=== PATIENT | female | born 1935 | race Caucasian/White ===

== ENCOUNTER 2016-08-06 08:25 | Inpatient (IN) ==
[2016-08-06] MEDS ORDERED: METHOCARBAMOL 1,000 MG/10 ML VIAL IV STA (08:57)
[2016-08-06] MEDS ORDERED: KETOROLAC 30 MG/1 ML VIAL IV STA (08:57)
[2016-08-06] MEDS ORDERED: methylPREDNISolone SOD SUC 125 MG/2 ML VIAL IV STA (08:57)
--- NOTE | 2016-08-06 09:04 | Emergency Department Note ---
Arrival - Arrival Chief Complaint: Abdominal / Flank Pain Stated Complaint: Kidney infection-pain ED Nursing Triage Note: PT C/O LEFT LOWER BACK PAIN, LEFT FLANK PAIN ALL WEEK, WORSE LAST NIGHT. DENIES URINARY S/S. PT IS BEING TREATED FOR KIDNEY INFECTION BY DR NASSAR- PT HAD CT SCAN OF ABD ON MONDAY HERE. Mode of Arrival: Ambulatory Limitations: No Limitations Source: Patient Time Seen by Provider: 08/06/16 08:57 - History of Present Illness HPI Narrative: This 80-year-old white female presents with complaints of left sided mid back/ flank pain associated with nausea for the last week that has progressed to the point that she was up all night simply walking to get comfortable. She was seen by Dr. Funes twice this week and found to have several different issues. 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 The patient did demonstrate early in the week evidence of cystitis for which she was begun on antibiotics but had persistence of discomfort precipitating the CT scan. Also performed later in the week or serologic studies which revealed both hyponatremia and hypokalemia which were addressed. Currently the patient has no anterior abdominal pain and states specifically an area of discomfort in the left paraspinal thoracic area which she states at times seems to radiate down the left lower extremity. Currently although uncomfortable she is in no acute distress. Onset (ago): day(s) (Patient presents 1 week post onset of symptoms) Allergies/Adverse Reactions: Allergies Allergy/AdvReac Type Severity Reaction Status Date / Time sulfamethoxazole Allergy Unknown/Unable Verified 08/06/16 08:42 [From Bactrim] to obtain trimethoprim [From Bactrim] Allergy Unknown/Unable Verified 08/06/16 08:42 to obtain Home Medications: Home Medications Medication Instructions Recorded Confirmed Type Aspirin [Ecotrin] 81 mg PO DAILY #30 tablet. 05/26/14 Rx Levothyroxine Tab [Synthroid Tab] 75 mcg PO DAILY@0700 05/26/14 05/26/14 History Metoprolol Succinate Xl [Toprol Xl] 25 mg PO DAILY #30 tablet 05/26/14 Rx traMADol TAB [Ultram] 50 mg PO BID PRN 05/26/14 05/26/14 History Review of System - Review of System 12 point system: reviewed and no additional remarkable complaints except as stated - Review of System Constitutional: Present: as per HPI Gastrointestinal: Present: as per HPI Genitourinary female: Present: as per HPI Musculoskeletal: Present: as per HPI Neurological: Present: as per HPI Medical,Surgical,& Family Hx - Medical History Endocrine: History of: Thyroid Disorder Respiratory: History of: Bronchitis Gastrointestinal: History of: GERD Reproductive: History of: Ectopic - Surgical History Abdominal Surgeries: Surgical HX of: Appendectomy - Social History Smoking Status: Never smoker Frequency of Alcohol Use: None Type of Drug Use: None Exam Physical Examination: GENERAL: Well developed, well nourished elderly white female in no acute distress. HEENT: Normocephalic. No trauma. Moist mucous membranes. EOMI. PERRLA. ENT NML NECK: Supple. No adenopathy. CARDIAC: Regular. No murmurs. Heart rate 89 CHEST: Clear to auscultation. No respiratory distress. O2 sat 97% ABDOMEN: Soft. Nontender. Active bowel sounds. Tender tender left CVA EXTREMITIES: No trauma. Normal ROM. No pedal edema. Negative leg raising SKIN: No diaphoresis. No rash. NEURO: Alert. Oriented 3. Motor, sensory, vibratory intact. No focal deficits. Vital Signs: Vital Signs Temperature 99.1 F 08/06/16 08:39 Pulse Rate 82 08/06/16 10:30 Respiratory Rate 18 08/06/16 10:30 Blood Pressure 171/84 08/06/16 10:30 O2 Sat by Pulse Oximetry 98 08/06/16 10:30 Course - Reevaluation(s) Reevaluation #1: Discussed with patient need for hospitalization given her laboratory findings per - Consultations Consultation #1: Discussed with hospitalist service who will evaluate for further evaluation and treatment. Results - Labs CBC & BMP: 08/06/16 09:41 08/06/16 09:41 Labs: I have reviewed the laboratory and noted the grossly normal lab except for lipase of 542. - Diagnostic Findings Procedure: Abdominal x-ray: image reviewed by me, report reviewed by me (No evidence of progression of small bowel obstruction although fecal stasis no), X- ray: image reviewed by me, report reviewed by me (Thoracic spine film reveals evidence of significant DJD. No compression fractures noted) Disposition Clinical Impression: Pancreatitis, Constipation, Thoracic spine DJD Case discussed with: patient, patient's family Disposition: Still a Patient Condition: Stable Time of Disposition: 10:47
--- NOTE | 2016-08-06 09:27 | XRay Report ---
Exam: XR thoracic spine 2V ap/lat Date: 08/06/2016 8:57 AM Comparison: Lateral chest x-ray 05/26/2014 Indication: Thoracic pain Technique:[AP and lateral thoracic spine] Findings: Minimal dextroscoliosis of the thoracic spine. Chronic appearing minimal volume loss at T6 and T8 with degenerative changes. No definite acute fracture identified. Impression: Osteopenia with minimal chronic volume loss at T6 and T8 and superimposed degenerative changes. No definite acute fracture identified. Minimal dextroscoliosis. PROCEDURE INTERPRETED AT [facility] DEPARTMENT OF RADIOLOGY Final Report Signed by: Dr. Clarita Dominguez
--- NOTE | 2016-08-06 09:27 | XRay Report ---
Exam: XR abdomen 2V Date: 08/06/2016 8:57 AM Comparison: None Indication: 6 generalized abdominal pain Technique:[Supine and erect abdomen] Findings: Nonobstructed bowel gas pattern with increased fecal material in colon. No free air is identified. Osteopenia with degenerative changes. Impression: Nonobstructed bowel gas pattern. Increased fecal material consistent with constipation. Osteopenia with degenerative changes. PROCEDURE INTERPRETED AT [facility] DEPARTMENT OF RADIOLOGY Final Report Signed by: Dr. Clarita Dominguez
[2016-08-06 09:49] LABS: Basophils # 0.1 10*3/uL (0.0-0.2); Basophils % 0.7 % (0.0-0.8); Eosinophils # 0.1 10*3/uL (0.0-0.87); Eosinophils % 1.2 % (0.00-10.9); Hematocrit 40.6 VOL% (35.7-47.0); Hemoglobin 14.3 GM/DL (12.0-16.0); Immature Granulocytes % 0.3 %; Immature Granulocytes Absolute 0.02 #; Lymphocytes # 0.9 10*3/uL (1.4-4.0); Lymphocytes % 12.8 % (21.3-54.2); Mean Corpuscular HGB Conc 35.2 GM/DL (32-36); Mean Corpuscular Hemoglobin 31 PG (27-34); Mean Corpuscular Volume 87.3 FL (87-102); Mean Platelet Volume 10.2 FL (9.6-12.0); Monocytes # 0.7 10*3/uL (0.11-0.8); Monocytes % 10.8 % (1.7-12.7); Neutrophils # 5.1 10*3/uL (1.4-7.4); Neutrophils % 74.2 % (38.7-73.9); Platelet Count 231 T/CUMM (130-400); Red Blood Count 4.65 MC/CUMM (3.8-5.5); Red Cell Distribution Width 12.7 % (9.3-17.3); White Blood Count 6.9 T/CUMM (4-12)
[2016-08-06] MEDS ORDERED: KETOROLAC 30 MG/1 ML VIAL ONE (10:00)
[2016-08-06] MEDS ORDERED: methylPREDNISolone SOD SUC 125 MG/2 ML VIAL ONE (10:00)
[2016-08-06] MEDS ORDERED: METHOCARBAMOL 1,000 MG/10 ML VIAL ONE (10:00)
[2016-08-06 10:20] LABS: Albumin 3.8 G/DL (3.4-5.0); Bilirubin,Total 0.7 MG/DL (0.2-1.0); Calcium 8.9 MG/DL (8.5-10.1); Osmolality,Calculated 264.5 MOS/KG (273-304); Potassium 3.6 MMOL/L (3.5-5.1)
[2016-08-06 10:21] LABS: Apearance,Urine CLEAR (Clear); Bilirubin,Urine Negative (Negative); Blood, Urine Negative (Negative); Calcium Oxalate Crystals,Urine Occasional /HPF (Few); Glucose,Urine (UA) Negative (Negative); Ketones,Urine 5 mg/dL (Negative); Mucus,Urine Occasional /LPF (Occasional); Nitrite,Urine Negative (Negative); Protein,Urine 30 MG/DL; RBC,Urine 2 /HPF (0-4); Squamous Epithelial Cell,Urine Occasional /HPF (0-10); Urine Color Yellow (Yellow); Urine Specific Gravity 1.012 (1.001-1.035); Urine Urobilinogen < 2.0 EU/DL (0.2-1.0); WBC,Urine <1 /HPF (0-6)
[2016-08-06 10:22] LABS: Lactic Acid 0.8 MMOL/L (0.4-2.0)
[2016-08-06] MEDS ORDERED: ENOXAPARIN 40 MG/0.4 ML SYRINGE SUBCUT SCH (11:00)
[2016-08-06 11:20] LABS: Magnesium 1.9 MG/DL (1.8-2.4); Thyroid Stimulating Hormone 1.3 uIU/ml (0.358-3.74)
--- NOTE | 2016-08-06 11:26 | Hospitalist History & Physical ---
Assessment and Plan (1) Hyponatremia Status: Acute Assessment and plan: Sodium noted at 132, we will gently rehydrate and recheck in a.m. Current Visit: Yes (2) Elevated lipase Status: Acute Assessment and plan: Lipase noted 542 at the time of admission. We will start empiric antibiotic coverage, gently rehydrate, pain management, PPIs, and promote bowel rest. Current Visit: Yes (3) Constipation, unspecified Status: Acute Assessment and plan: We will start a bowel regimen plan. Reassess in a.m. Current Visit: Yes History of Present Illness Chief complaint: Abdominal pain History of present illness: This is a very pleasant 72-year-old female that presented to the ED at [facility] this morning for evaluation of abdominal pain. Patient has a medical history significant for: hypertension, depression, bronchitis, hypothyroidism, GERD, and arthritis. Patient has a surgical history significant for: appendectomy and bladder sling placement. The patient reports the onset of the above symptoms 1 week prior to presentation. She reports that she is normally followed by Dr. Funes and had been seen twice this week for the above complaint. During the clinical encounters with Dr. Funes this week the patient was told that she had several possible conditions that could attribute to the abdominal pain. It was suggested that the patient had cystitis and she was started on antibiotics; however the abdominal pain continued. The patient received a CT scan and outpatient setting which reported the possibility of early left-sided small bowel obstruction and severe degenerative disc changes of the axial skeleton. In addition, the patient was also noted to be hyponatremic and hypokalemic in the outpatient setting; in which she was also treated. At the time of ED presentation, the patient reported left lower abdominal and back discomfort. She reported that the pain originate in those areas and radiated down the left extremity. Labs were obtained: Hematology panel reported WBCs at 6.9, hemoglobin 14.3, hematocrit 40.6, and platelet count at 231. Chemistry panel was obtained which reported a sodium at 132, potassium 3.6 , chloride 98, carbon dioxide 26, anion gap 11.6, BUN 15, creatinine 0.70, glucose 98, calculated osmolality 264.5, lactic acid 0.8, calcium 8.9, AST 18, ALT 20, alkaline phosphatase 67, total protein 7.0, and lipase at 542. Urinalysis was essentially negative. X-ray of the thoracic spine reported: Osteopenia with minimal chronic volume loss at T6 and T8 and superimposed degenerative changes, no definite acute fracture identified, and minimal dextroscoliosis. Abdominal x-ray obtained which reported nonobstructive bowel gas pattern, increased fecal material consistent with constipation, osteopenia with degenerative changes. After brief discussion with Dr. Alvarez and Dr. Max, the patient will be admitted to the hospitalist services for continuation of care. Home Medications Medication Instructions Recorded Confirmed Type Aspirin [Ecotrin] 81 mg PO DAILY #30 tablet. 05/26/14 08/06/16 Rx Metoprolol Succinate Xl [Toprol Xl] 25 mg PO DAILY #30 tablet 05/26/14 08/06/16 Rx traMADol TAB [Ultram] 50 mg PO BID PRN 05/26/14 08/06/16 History Calcium (Carb)/Vit D 600-400 1 tablet PO DAILY 08/06/16 08/06/16 History [Caltrate 600 + D] Ciprofloxacin HCl [Ciprofloxacin 500 mg PO BID W/MEALS 08/06/16 08/06/16 History Tab] Esomeprazole Magnesium 20 mg PO DAILY 08/06/16 08/06/16 History [Esomeprazole] Levothyroxine Tab [Synthroid Tab] 50 mcg PO DAILY@0700 08/06/16 08/06/16 History Multivitamin [Multivitamins] 1 each PO QPM 08/06/16 08/06/16 History Potassium Chloride Cap/Tab [K Dur] 20 meq PO DAILY 08/06/16 08/06/16 History Sertraline HCl [Sertraline HCl] 50 mg PO DAILY 08/06/16 08/06/16 History Allergies Allergy/AdvReac Type Severity Reaction Status Date / Time sulfamethoxazole Allergy Unknown/Unable Verified 08/06/16 08:42 [From Bactrim] to obtain trimethoprim [From Bactrim] Allergy Unknown/Unable Verified 08/06/16 08:42 to obtain Medical,Surgical,& Family Hx - Medical History Endocrine: History of: Thyroid Disorder Respiratory: History of: Bronchitis Gastrointestinal: History of: GERD Reproductive: History of: Ectopic - Surgical History Abdominal Surgeries: Surgical HX of: Appendectomy - Social History Smoking Status: Never smoker Frequency of Alcohol Use: None Type of Drug Use: None 12 point system: reviewed and no additional remarkable complaints except as stated Exam - Constitutional Vitals: Period Temp Pulse Resp BP Sys/Santamaria Pulse Ox Last 24 Hr 99.1 F-99.1 F 82-89 18-18 149-208/84-96 96-98 General appearance: normal weight, no acute distress - Head Head exam: Present: normal inspection, normocephalic, atraumatic - Eye Eye exam: Present: EOMI, conjunctival injection, nystagmus Pupils: Present: RAISSA, normal accommodation - ENT ENT exam: Present: normal exam, normal external ear exam, normal oropharynx - Neck Neck exam: Present: normal inspection. Absent: lymphadenopathy, meningismus, tenderness, thyromegaly - Cardiovascular Cardiovascular exam: Present: regular rate and rhythm. Absent: carotid bruit, diastolic murmur, gallop, JVD, rubs, systolic murmur - GI/Abdominal GI/Abdominal exam: Present: normal bowel sounds, soft. Absent: distended, firm , tenderness - Extremities Exam Extremities exam: Present: normal inspection, normal capillary refill, full ROM , edema - Back Exam Back exam: Present: CVA tenderness (L) - Neurological Exam Neurological exam: Present: alert, oriented X3, CN II-XII intact - Psychiatric Psychiatric exam: Present: normal affect, normal mood - Skin Skin exam: Present: normal color, warm, dry Results - Labs CBC & BMP: 08/06/16 09:41 08/06/16 09:41 Lab Results: I have reviewed the past 24 hour labs
--- NOTE | 2016-08-06 12:32 | Ultrasound Report ---
Exam: US abdomen Date: 08/06/2016 11:25 AM Comparison: CT abdomen and pelvis 08/04/2016 Indication: Abnormal CT, left abdominal pain Technique:[Multiple transabdominal real-time scans were obtained of the abdomen. Color flow scans obtained. Ultrasound images were captured and stored.] Findings: Hyperechoic finding in the gallbladder with posterior acoustical shadowing consistent with cholelithiasis. The gallbladder measures 1.5 mm with negative sonographic Irizarry sign. CBD is normal in size measuring 5 mm. The liver is normal in size with no masses. The spleen has a normal appearance with a splenic index of 75 mm. Right kidney measures 114 mm in length. Left kidney measures 105 mm in length with no hydronephrosis. 9 mm simple appearing right upper pole renal cyst. 7 mm tiny left renal cyst. No hydronephrosis. The visualized pancreas and aorta have an unremarkable appearance with color flow documented in the IVC. Portions of the pancreas and aortic bifurcation are obscured by bowel gas. Impression: Cholelithiasis with no evidence of definite cholecystitis. Small renal cysts. This includes a 7 mm probable hyperdense cyst in the upper pole of the left kidney. This lesion is so small it is more difficult to evaluate and continued follow-up renal ultrasound may be helpful to document the stability of this finding. The pancreas and aorta are partially obscured by bowel gas. The Ultrasound images were captured and stored. PROCEDURE INTERPRETED AT [facility] DEPARTMENT OF RADIOLOGY Final Report Signed by: Dr. Clarita Dominguez
[2016-08-06] MEDS: POLYETHYLENE GLYCOL POWDER 17 GM PACK PO SCH (14:00)
[2016-08-06] MEDS: metroNIDAZOLE INJ 500 MG in PREMIX 1 EACH IV SCH ×2 (14:00→22:16)
[2016-08-06] MEDS: SODIUM CHLORIDE 0.9% 1,000 ML IV SCH (14:00)
[2016-08-06] MEDS: PIPERACILLIN/TAZOBACTAM 3,375 MG in SODIUM CHLORIDE 0.9% 100 ML IV SCH (16:00)
[2016-08-06] MEDS: MULTIVITAMIN (CENTRUM) TABLET PO SCH (18:17)
[2016-08-07] MEDS: SODIUM CHLORIDE 0.9% 1,000 ML IV SCH ×2 (01:10→15:38)
[2016-08-07] MEDS: PIPERACILLIN/TAZOBACTAM 3,375 MG in SODIUM CHLORIDE 0.9% 100 ML IV SCH ×3 (01:10→15:34)
[2016-08-07 02:21] LABS: Basophils % 0.3 % (0.0-0.8); Eosinophils % 0.3 % (0.00-10.9); Hematocrit 36.8 VOL% (35.7-47.0); Immature Granulocytes % 0.3 %; Immature Granulocytes Absolute 0.02 #; Lymphocytes # 0.8 10*3/uL (1.4-4.0); Lymphocytes % 12.5 % (21.3-54.2); Mean Corpuscular HGB Conc 35.3 GM/DL (32-36); Mean Corpuscular Hemoglobin 31 PG (27-34); Mean Corpuscular Volume 86.6 FL (87-102); Mean Platelet Volume 10.3 FL (9.6-12.0); Monocytes # 0.9 10*3/uL (0.11-0.8); Monocytes % 13.7 % (1.7-12.7); Neutrophils # 4.5 10*3/uL (1.4-7.4); Neutrophils % 72.9 % (38.7-73.9); Platelet Count 228 T/CUMM (130-400); Red Blood Count 4.25 MC/CUMM (3.8-5.5); Red Cell Distribution Width 12.5 % (9.3-17.3); White Blood Count 6.2 T/CUMM (4-12)
[2016-08-07 02:52] LABS: Albumin 3.4 G/DL (3.4-5.0); Bilirubin,Total 1.1 MG/DL (0.2-1.0); Calcium 8.7 MG/DL (8.5-10.1); Magnesium 1.8 MG/DL (1.8-2.4); Osmolality,Calculated 268.2 MOS/KG (273-304); Potassium 3.4 MMOL/L (3.5-5.1); Total Protein 6.3 G/DL (6.4-8.3)
[2016-08-07] MEDS: metroNIDAZOLE INJ 500 MG in PREMIX 1 EACH IV SCH ×4 (05:27→23:24)
[2016-08-07] MEDS: LEVOTHYROXINE 50 MCG TABLET PO SCH (06:26)
[2016-08-07] MEDS: PANTOPRAZOLE 40 MG VIAL IV SCH (08:23)
[2016-08-07] MEDS: CALCIUM (CARBONATE)/VITAMIN D 600 MG-400 UNIT TABLET PO SCH (08:23)
[2016-08-07] MEDS: SERTRALINE 50 MG TABLET PO SCH (08:24)
[2016-08-07] MEDS: POTASSIUM CHLORIDE 20 MEQ TABLET PO SCH (08:24)
[2016-08-07] MEDS: ASPIRIN EC 81 MG TABLET PO SCH (08:24)
[2016-08-07] MEDS: METOPROLOL SUCCINATE XL 25 MG TABLET PO SCH (08:24)
[2016-08-07] MEDS: POLYETHYLENE GLYCOL POWDER 17 GM PACK PO SCH (08:24)
--- NOTE | 2016-08-07 10:46 | XRay Report ---
Exam: XR KUB Date: 08/07/2016 10:11 AM Comparison: 08/06/2016 Indication: Generalized abdominal pain Technique:[Supine abdomen] Findings: Progressive mild gaseous distention of the colon. Degenerative changes are noted. Osteopenia. Impression: Progressive mild gaseous distention of the bowel especially the colon which can be seen with ileus, etc. PROCEDURE INTERPRETED AT [facility] DEPARTMENT OF RADIOLOGY Final Report Signed by: Dr. Clarita Dominguez
--- NOTE | 2016-08-07 13:15 | Hospitalist Progress Note ---
Assessment and Plan - Time spent with patient Time spent with patient: Greater than 30 minutes (1) Pancreatitis Status: Acute Assessment and plan: I believe the patient is recovering from pancreatitis. Obtain lipase tomorrow. Current Visit: Yes (2) Renal lesion Status: Acute Assessment and plan: Too small to quantify. Recommend follow up. Current Visit: Yes Hospitalist: Subjective Interval history: No complaints, tolerating a liquid diet, no abdominal pain, resolved since admiission. Exam - Constitutional Vitals: Period Temp Pulse Resp BP Sys/Santamaria Pulse Ox Last 24 Hr 97.3 F-98.6 F 81-97 18-20 140-164/76-94 95-99 General appearance: no acute distress - Head Head exam: Present: normocephalic, atraumatic - Eye Eye exam: Present: EOMI Pupils: Present: RAISSA - ENT ENT exam: Present: normal exam - Neck Neck exam: Present: normal inspection - Respiratory Respiratory exam: Present: clear to auscultation bilaterally. Absent: rhonchi, wheezes - Cardiovascular Cardiovascular exam: Present: regular rate and rhythm. Absent: gallop, rubs, systolic murmur - GI/Abdominal GI/Abdominal exam: Present: normal bowel sounds, soft. Absent: distended, firm , guarding, tenderness, rebound - Extremities Exam Extremities exam: Present: normal inspection. Absent: calf tenderness, edema Results - Labs CBC & BMP: 08/07/16 01:48 08/07/16 01:48 Lab Results: I have reviewed the past 24 hour labs
[2016-08-07] MEDS: MULTIVITAMIN (CENTRUM) TABLET PO SCH (18:38)
[2016-08-08] MEDS: PIPERACILLIN/TAZOBACTAM 3,375 MG in SODIUM CHLORIDE 0.9% 100 ML IV SCH ×2 (00:24→06:45)
[2016-08-08] MEDS: SODIUM CHLORIDE 0.9% 1,000 ML IV SCH ×2 (04:06→23:00)
[2016-08-08] MEDS: metroNIDAZOLE INJ 500 MG in PREMIX 1 EACH IV SCH ×4 (04:43→23:00)
[2016-08-08] MEDS: LEVOTHYROXINE 50 MCG TABLET PO SCH (06:44)
[2016-08-08] MEDS: PANTOPRAZOLE 40 MG VIAL IV SCH (08:48)
[2016-08-08] MEDS: CALCIUM (CARBONATE)/VITAMIN D 600 MG-400 UNIT TABLET PO SCH (08:49)
[2016-08-08] MEDS: SERTRALINE 50 MG TABLET PO SCH (08:50)
[2016-08-08] MEDS: POLYETHYLENE GLYCOL POWDER 17 GM PACK PO SCH (08:50)
[2016-08-08] MEDS: ASPIRIN EC 81 MG TABLET PO SCH (08:50)
[2016-08-08] MEDS: POTASSIUM CHLORIDE 20 MEQ TABLET PO SCH (08:50)
[2016-08-08] MEDS: METOPROLOL SUCCINATE XL 25 MG TABLET PO SCH (08:50)
--- NOTE | 2016-08-08 10:30 | Hospitalist Progress Note ---
Assessment and Plan - Time spent with patient Time spent with patient: Greater than 30 minutes (1) Pancreatitis Status: Acute Assessment and plan: I believe the patient is recovering from pancreatitis. Lipase stable, will ask GI to evaluate. Current Visit: Yes (2) Renal lesion Status: Acute Assessment and plan: Too small to quantify. Recommend follow up. Current Visit: Yes Hospitalist: Subjective Interval history: No complaints or overnight events. Reports no abdominal pain. Lipase is still mildly elevated. Exam - Constitutional Vitals: Period Temp Pulse Resp BP Sys/Santamaria Pulse Ox Last 24 Hr 97.7 F-98.3 F 67-81 16-20 143-181/76-96 95-99 General appearance: no acute distress - Head Head exam: Present: normocephalic, atraumatic - Eye Eye exam: Present: EOMI Pupils: Present: RAISSA - ENT ENT exam: Present: normal exam - Neck Neck exam: Present: normal inspection - Respiratory Respiratory exam: Present: clear to auscultation bilaterally. Absent: rhonchi, wheezes - Cardiovascular Cardiovascular exam: Present: regular rate and rhythm. Absent: gallop, rubs, systolic murmur - GI/Abdominal GI/Abdominal exam: Present: normal bowel sounds, soft. Absent: distended, firm , guarding, tenderness, rebound - Extremities Exam Extremities exam: Present: normal inspection. Absent: calf tenderness, edema Results - Labs CBC & BMP: 08/07/16 01:48 08/07/16 01:48 Lab Results: I have reviewed the past 24 hour labs
--- NOTE | 2016-08-08 14:20 | Gastrointestinal Consult Note ---
Assessment and Plan (1) Abdominal pain Status: Acute Assessment and plan: 08/08-1 week history of abdominal pain primarily left upper quadrant radiating to back. Findings on admission of mildly elevated lipase without imaging findings of pancreatitis. History of cholelithiasis with normal common bile duct. Mildly elevated bilirubin at 1.1. CT and ultrasound results noted as below. Advance diet today and continue to monitor. Plan an addendum follow Dr. Riddle. Current Visit: Yes History of Present Illness Chief complaint: Left side abdominal pain History of present illness: Ms. Dill is a 80 year old female who was admitted to the hospital 08/06 with complaints of abdominal pain. Patient states that approximately 1 week ago she had a sudden onset of abdominal pain primarily in the left upper quadrant that radiated around to her back. She states that the pain continued off and on and she was seen in clinic by Dr. Funes twice during this interval for the pain. Patient was felt to possibly have some cystitis and was started on Cipro however there was no resolution of the pain following this. Patient then had an outpatient CT scan without contrast done which showed cholelithiasis with minimal distention of the gallbladder, left kidney cyst, small bowel in the left abdomen minimally enlarged than the distal small bowel as possible early symptoms of small bowel obstruction, and diverticulosis. Patient states that she has no precipitating factors associated with the pain. There is nothing that helps to alleviate the pain as well. It is not associated with nausea and vomiting. She states that her bowels have been moving fairly regular with occasional constipation and denies any melena or hematochezia. Her only prior surgery history includes appendectomy and bladder sling placement in the past. She states that she has lost 4-5 pounds over the last 4-5 months however relates this to losing her spouse over the last couple years and just generally loss of appetite due to living alone. On admission she was found to have an elevated lipase level at 542. Over the last 3 days it is remained at 626 and now today at 547 however patient is having no acute episodes of pain. She is tolerating clear liquid diet with no increase in pain or nausea or vomiting with her meals. No findings on UA of UTI at present time. She is afebrile. She denies history of smoking or alcohol use in the past. States she is aware of the gallstone and she has had this for over 20 years and has had no complications associated with this. Denies no history of elevated liver enzymes in the past. Denies any recent changes in her diet, medication regimen , or [id number] supplements. Bilirubin was mildly elevated on yesterday at 1.1 with normal transaminases. Abdominal ultrasound showed cholelithiasis without definite cholecystitis with common bile duct at 5 mm, no evidence on imaging of pancreatitis mentioned. Home Medications Medication Instructions Recorded Confirmed Type Aspirin [Ecotrin] 81 mg PO DAILY #30 tablet. 05/26/14 08/06/16 Rx Metoprolol Succinate Xl [Toprol Xl] 25 mg PO DAILY #30 tablet 05/26/14 08/06/16 Rx traMADol TAB [Ultram] 50 mg PO BID PRN 05/26/14 08/06/16 History Calcium (Carb)/Vit D 600-400 1 tablet PO DAILY 08/06/16 08/06/16 History [Caltrate 600 + D] Ciprofloxacin HCl [Ciprofloxacin 500 mg PO BID W/MEALS 08/06/16 08/06/16 History Tab] Esomeprazole Magnesium 20 mg PO DAILY 08/06/16 08/06/16 History [Esomeprazole] Levothyroxine Tab [Synthroid Tab] 50 mcg PO DAILY@0700 08/06/16 08/06/16 History Multivitamin [Multivitamins] 1 each PO QPM 08/06/16 08/06/16 History Potassium Chloride Cap/Tab [K Dur] 20 meq PO DAILY 08/06/16 08/06/16 History Sertraline HCl [Sertraline HCl] 50 mg PO DAILY 08/06/16 08/06/16 History Allergies Allergy/AdvReac Type Severity Reaction Status Date / Time sulfamethoxazole Allergy Unknown/Unable Verified 08/06/16 08:42 [From Bactrim] to obtain trimethoprim [From Bactrim] Allergy Unknown/Unable Verified 08/06/16 08:42 to obtain Medical,Surgical,& Family Hx - Medical History Endocrine: History of: Thyroid Disorder Respiratory: History of: Bronchitis Gastrointestinal: History of: GERD Reproductive: History of: Ectopic - Surgical History Abdominal Surgeries: Surgical HX of: Appendectomy - Social History Smoking Status: Never smoker Frequency of Alcohol Use: None Type of Drug Use: None 12 point system: reviewed and no additional remarkable complaints except as stated - Constitutional Constitutional: Present: as per HPI, weight loss (5 pounds over the last 5 months) - EENT Eyes: Present: as per HPI Ears: Present: as per HPI Nose, mouth and throat: Present: as per HPI - Cardiovascular Cardiovascular: Present: as per HPI - Respiratory Respiratory: Present: as per HPI - Gastrointestinal Gastrointestinal: Present: as per HPI, abdominal pain - Genitourinary Genitourinary: Present: as per HPI - Musculoskeletal Musculoskeletal: Present: as per HPI - Neurological Neurological: Present: as per HPI - Psychiatric Psychiatric: Present: as per HPI - Endocrine Endocrine: Present: as per HPI - Hematologic/Lymphatic Hematologic/Lymphatic: Present: as per HPI Exam - Constitutional Vitals: Period Temp Pulse Resp BP Sys/Santamaria Pulse Ox Last 24 Hr 97.7 F-98.3 F 67-82 16-20 143-181/81-96 94-98 General appearance: normal weight, no acute distress - Head Head exam: Present: normal inspection, normocephalic - Eye Eye exam: Present: other (Lids and conjunctive are unremarkable). Absent: scleral icterus - ENT ENT exam: Present: normal exam, normal oropharynx - Neck Neck exam: Present: normal inspection - Respiratory Respiratory exam: Present: clear to auscultation bilaterally. Absent: rales, rhonchi, wheezes - Cardiovascular Cardiovascular exam: Present: regular rate and rhythm. Absent: diastolic murmur , JVD, systolic murmur - GI/Abdominal GI/Abdominal exam: Present: normal bowel sounds, soft. Absent: ascites, distended, mass, organomegaly, tenderness - Extremities Exam Extremities exam: Present: normal inspection, full ROM - Back Exam Back exam: Present: normal inspection - Neurological Exam Neurological exam: Present: alert, oriented X3 - Psychiatric Psychiatric exam: Present: normal affect, normal mood - Skin Skin exam: Present: normal color, warm, dry Results - Labs CBC & BMP: 08/07/16 01:48 08/07/16 01:48 Lab Results: I have reviewed the past 24 hour labs - Diagnostic Findings Procedure: Abdominal x-ray: report reviewed by me, CT Abdomen and Pelvis: report reviewed by me, Ultrasound: report reviewed by me
[2016-08-08] MEDS: MULTIVITAMIN (CENTRUM) TABLET PO SCH (20:13)
[2016-08-09] MEDS: metroNIDAZOLE INJ 500 MG in PREMIX 1 EACH IV SCH ×2 (04:53→11:33)
[2016-08-09] MEDS: LEVOTHYROXINE 50 MCG TABLET PO SCH (07:12)
[2016-08-09] MEDS: PANTOPRAZOLE 40 MG VIAL IV SCH (08:58)
[2016-08-09] MEDS: METOPROLOL SUCCINATE XL 25 MG TABLET PO SCH (08:59)
[2016-08-09] MEDS: POTASSIUM CHLORIDE 20 MEQ TABLET PO SCH (08:59)
[2016-08-09] MEDS: ASPIRIN EC 81 MG TABLET PO SCH (08:59)
[2016-08-09] MEDS: CALCIUM (CARBONATE)/VITAMIN D 600 MG-400 UNIT TABLET PO SCH (08:59)
[2016-08-09] MEDS: POLYETHYLENE GLYCOL POWDER 17 GM PACK PO SCH (08:59)
[2016-08-09] MEDS: SERTRALINE 50 MG TABLET PO SCH (08:59)
--- NOTE | 2016-08-09 09:10 | Gastrointestinal Progress Note ---
Assessment and Plan (1) Abdominal pain Status: Acute Assessment and plan: 08/09-No abd pain. Tolerating diet advancement. Okay to discharge from GI standpoint at this time. Pt may f/u in clinic if symptoms reoccur. Plan and addendum to follow by Dr Riddle. 08/08-1 week history of abdominal pain primarily left upper quadrant radiating to back. Findings on admission of mildly elevated lipase without imaging findings of pancreatitis. History of cholelithiasis with normal common bile duct. Mildly elevated bilirubin at 1.1. CT and ultrasound results noted as below. Advance diet today and continue to monitor. Plan an addendum follow Dr. Riddle. Current Visit: Yes Gastroenterology - PN: Subj Interval history: CC: Abd pain Pt is seen, awake and alert sitting on side of bed. States she rested very well overnight and is feeling better today. She is having no abdominal pain, nausea or vomiting. Her diet was advanced to soft on yesterday and she is tolerating this well. Abdomen is soft, nontender. ROS: Denies SOB or chest pain Exam (Progress Note) - Constitutional Vitals: Period Temp Pulse Resp BP Sys/[place] Pulse Ox Last 24 Hr 98.0 F-98.8 F 64-85 16-20 157-170/82-102 93-97 General appearance: normal weight, no acute distress - Head Head exam: Present: normal inspection, normocephalic - Eye Eye exam: Present: other (lids and conjunctiva unremarakble). Absent: scleral icterus - ENT ENT exam: Present: normal exam, normal oropharynx - Neck Neck exam: Present: normal inspection - Respiratory Respiratory exam: Present: clear to auscultation bilaterally. Absent: rales, rhonchi, wheezes - Cardiovascular Cardiovascular exam: Present: regular rate and rhythm. Absent: diastolic murmur , JVD, systolic murmur - GI/Abdominal GI/Abdominal exam: Present: normal bowel sounds, soft. Absent: ascites, distended, mass, organomegaly, tenderness - Extremities Exam Extremities exam: Present: normal inspection, full ROM - Back Exam Back exam: Present: normal inspection - Neurological Exam Neurological exam: Present: alert, oriented X3 - Psychiatric Psychiatric exam: Present: normal affect, normal mood - Skin Skin exam: Present: normal color, warm, dry Results - Labs CBC & BMP: 08/07/16 01:48 08/07/16 01:48 Lab Results: I have reviewed the past 24 hour labs
[2016-08-09] MEDS: SODIUM CHLORIDE 0.9% 1,000 ML IV SCH (11:32)
[2016-08-09 11:44] VITALS: BP 139/79
--- NOTE | 2016-08-09 12:41 | Discharge Summary ---
Hospital Course - Hospital Course Hospital Course: Ms. Dill is a 80-year-old female who was admitted for evaluation of abdominal pain. On admission her abdominal pain resolved spontaneously however she was found to have mildly elevated lipase. CT of her abdomen revealed no acute etiology. Pancreas was unremarkable. She was initiated on IV fluids and kept on a clear diet. She was seen in consultation by gastroenterology who felt that this did not represent pancreatitis. Initially the patient was managed with Zosyn and metronidazole however this was discontinued at discharge. By discharge she was tolerating a diet and had met her maximum benefit of hospitalization. I spent 37 minutes coordinating this discharge. - Time spent with patient Time with patient DS: Greater than 30 minutes Diagnosis - Discharge Diagnosis (1) Pancreatitis Status: Acute (2) Renal lesion Status: Acute Discharge Plan - Discharge Data Disposition: Disch To Home/Self Care Condition at Discharge: Stable Discharge Diet: advance to your usual diet Activity: resume usual activities as tolerated Hygiene: no restrictions - Discharge Medications Continue traMADol TAB [Ultram] 50 mg PO BID PRN PRN Reason: Pain Aspirin [Ecotrin] 81 mg PO DAILY #30 tablet. Metoprolol Succinate Xl [Toprol Xl] 25 mg PO DAILY #30 tablet Esomeprazole Magnesium [Esomeprazole] 20 mg PO DAILY Levothyroxine Tab [Synthroid Tab] 50 mcg PO DAILY@0700 Sertraline HCl 50 mg PO DAILY Multivitamin [Multivitamins] 1 each PO QPM Calcium (Carb)/Vit D 600-400 [Caltrate 600 + D] 1 tablet PO DAILY Potassium Chloride Cap/Tab [K Dur] 20 meq PO DAILY Discontinued Ciprofloxacin HCl [Ciprofloxacin Tab] 500 mg PO BID W/MEALS - Follow Up or Referral - Forms/Instructions Exam - Constitutional Vitals: Period Temp Pulse Resp BP Sys/S[place]aria Pulse Ox Last 24 Hr 98.0 F-98.8 F 64-85 16-20 139-170/79-102 93-100 General appearance: normal weight, no acute distress - Head Head exam: Present: normal inspection, normocephalic, atraumatic - Eye Eye exam: Present: EOMI Pupils: Present: RAISSA - ENT ENT exam: Present: normal exam - Neck Neck exam: Present: normal inspection - Respiratory Respiratory exam: Present: clear to auscultation bilaterally - Cardiovascular Cardiovascular exam: Present: bradycardia - GI/Abdominal GI/Abdominal exam: Present: normal bowel sounds. Absent: ascites, hypoactive bowel sounds, tenderness - Extremities Exam Extremities exam: Present: normal inspection DS: Provider Date of admission: 08/06/16 10:48 Primary care physician: . No PCP Attending physician on admission: Arti Mcintosh MD Consults: 08/08/16 09:56 Consult to Physician [CONS] Routine Comment: Pancreatitis Consulting Provider: Nithin Riddle Consult to Specialist Group: Gastroenterology When should Consulting Provider be notified: Now Person Notified: carolyn called Date Notified: 08/08/16 Time Notified: 13:20 Consult Notification Comment: . Discharging clinician: Arti Mcintosh MD Expected date of discharge: 08/09/16
== END 2016-08-09 13:45 | disposition home or self-care (01) | DRG 690 ==
LOC: N.ED 08:25 → N.EDINP 10:48 → N.3E 12:44
PROVIDERS: ADMIT Internal Medicine; ATTEND Internal Medicine

== ENCOUNTER 2021-03-23 05:57 | Inpatient (IN) ==
[2021-03-16 11:57] LABS: Basophils # 0.1 10*3/uL (0.0-0.2); Basophils % 1.4 % (0.0-0.8); Eosinophils # 0.5 10*3/uL (0.0-0.87); Eosinophils % 7.2 % (0.00-10.9); Hematocrit 35.2 VOL% (35.7-47.0); Hemoglobin 10.4 GM/DL (12.0-16.0); Immature Granulocytes % 0.2 %; Immature Granulocytes Absolute 0.01 #; Lymphocytes # 1.4 10*3/uL (1.4-4.0); Lymphocytes % 22.9 % (21.3-54.2); Mean Corpuscular HGB Conc 29.5 GM/DL (32-36); Mean Corpuscular Volume 77.5 FL (87-102); Mean Platelet Volume 10.5 FL (9.6-12.0); Monocytes % 11.8 % (1.7-12.7); Neutrophils % 56.5 % (38.7-73.9); Platelet Count 300 T/CUMM (130-400); Red Blood Count 4.54 MC/CUMM (3.8-5.5); Red Cell Distribution Width 18.6 % (9.3-17.3); White Blood Count 6.3 T/CUMM (4-12)
[2021-03-16 12:30] LABS: Osmolality,Calculated 279.4 MOS/KG (273-304); Potassium 4.4 MMOL/L (3.5-5.1)
[2021-03-23] MEDS ORDERED: LACTATED RINGERS 1,000 ML IV SCH (06:00)
[2021-03-23] MEDS ORDERED: ERTAPENEM 1,000 MG in SODIUM CHLORIDE 0.9% 100 ML IV ONE (06:00)
[2021-03-23] MEDS ORDERED: ALVIMOPAN 12 MG CAPSULE PO ONE (06:00)
[2021-03-23] MEDS ORDERED: LIDOCAINE 1% 5 ML VIAL ONE (06:34)
[2021-03-23] MEDS ORDERED: fentaNYL 100 MCG/2 ML VIAL ONE (06:34)
[2021-03-23] MEDS ORDERED: DEXAMETHASONE 4 MG/1 ML VIAL ONE (06:34)
[2021-03-23] MEDS ORDERED: ROPIVACAINE 0.5% 30 ML VIAL ONE (06:35)
[2021-03-23] MEDS ORDERED: ePHEDrine 50 MG/ML VIAL ONE (07:40)
[2021-03-23] MEDS ORDERED: INDOCYANINE GREEN 25 MG VIAL IV ONE (08:06)
[2021-03-23] MEDS ORDERED: TISSUE ADHESIVE 1 EACH APPLICATOR TOP ONE (09:04)
[2021-03-23] MEDS ORDERED: PHENYLEPHRINE 1 MG/10 ML SYRINGE IV ONE (09:10)
[2021-03-23] MEDS ORDERED: NEOSTIGMINE 10 MG/10 ML VIAL ONE (09:10)
[2021-03-23] MEDS ORDERED: SEVOFLURANE 1 UNIT/15 MINUTE INH ONE (09:10)
[2021-03-23] MEDS ORDERED: propofoL 200 MG/20 ML VIAL IV ONE (09:10)
[2021-03-23] MEDS ORDERED: ROCURONIUM 50 MG/5 ML VIAL IV ONE (09:10)
[2021-03-23] MEDS ORDERED: GLYCOPYRROLATE 0.4 MG/2 ML VIAL ONE (09:11)
[2021-03-23] MEDS ORDERED: ONDANSETRON 4 MG/2 ML VIAL ONE ×2 (09:11→09:40)
[2021-03-23] MEDS ORDERED: HYDROmorphone 2 MG/1 ML VIAL ONE (09:40)
[2021-03-23] MEDS: HYDROmorphone 2 MG/1 ML VIAL IV PRN ×6 (09:40→21:41)
[2021-03-23] MEDS ORDERED: ONDANSETRON 4 MG/2 ML VIAL IV PRN ×2 (09:48→09:52)
[2021-03-23] MEDS: LACTATED RINGERS 1,000 ML IV SCH (10:09)
[2021-03-23 13:17] LABS: Basophils % 0.1 % (0.0-0.8); Eosinophils % 0.1 % (0.00-10.9); Hematocrit 36.7 VOL% (35.7-47.0); Hemoglobin 10.9 GM/DL (12.0-16.0); Immature Granulocytes % 0.2 %; Immature Granulocytes Absolute 0.02 #; Lymphocytes # 0.4 10*3/uL (1.4-4.0); Lymphocytes % 3.9 % (21.3-54.2); Mean Corpuscular HGB Conc 29.7 GM/DL (32-36); Mean Corpuscular Volume 78.6 FL (87-102); Mean Platelet Volume 10.5 FL (9.6-12.0); Monocytes % 8.3 % (1.7-12.7); Neutrophils % 87.4 % (38.7-73.9); Platelet Count 334 T/CUMM (130-400); Red Blood Count 4.67 MC/CUMM (3.8-5.5); Red Cell Distribution Width 18.5 % (9.3-17.3); White Blood Count 10.1 T/CUMM (4-12)
[2021-03-23 13:32] LABS: Calcium 8.4 MG/DL (8.5-10.1); Osmolality,Calculated 275.8 MOS/KG (273-304); Potassium 3.5 MMOL/L (3.5-5.1)
[2021-03-23 13:43] LABS: Band Neutrophils 3 % (0-10); Lymphocytes 4 % (20-55); Platelet Estimate Normal; Segmented Neutrophils 85 % (50-85); Total Cells Counted 100
[2021-03-23 13:45] LABS: Target Cells Slight
[2021-03-23] MEDS: KETOROLAC 15 MG/1 ML VIAL IV SCH ×3 (14:18→21:40)
[2021-03-23] MEDS ORDERED: hydrALAZINE 20 MG/1 ML VIAL IV PRN (16:44)
[2021-03-23] MEDS ORDERED: SIMETHICONE CHEW 125 MG TABLET PO PRN (16:46)
[2021-03-23] MEDS: ALVIMOPAN 12 MG CAPSULE PO SCH (21:40)
[2021-03-24] MEDS: LACTATED RINGERS 1,000 ML IV SCH (00:30)
[2021-03-24] MEDS: KETOROLAC 15 MG/1 ML VIAL IV SCH ×2 (03:45→10:31)
[2021-03-24 05:46] LABS: Basophils % 0.2 % (0.0-0.8); Hematocrit 28.4 VOL% (35.7-47.0); Hemoglobin 8.7 GM/DL (12.0-16.0); Immature Granulocytes % 0.7 %; Immature Granulocytes Absolute 0.08 #; Lymphocytes # 0.6 10*3/uL (1.4-4.0); Mean Corpuscular HGB Conc 30.6 GM/DL (32-36); Mean Corpuscular Volume 76.5 FL (87-102); Mean Platelet Volume 10.3 FL (9.6-12.0); Monocytes % 10.9 % (1.7-12.7); Neutrophils % 83.2 % (38.7-73.9); Platelet Count 252 T/CUMM (130-400); Red Blood Count 3.71 MC/CUMM (3.8-5.5); Red Cell Distribution Width 18.4 % (9.3-17.3); White Blood Count 11.7 T/CUMM (4-12)
[2021-03-24 06:07] LABS: Calcium 8.5 MG/DL (8.5-10.1); Osmolality,Calculated 271.2 MOS/KG (273-304); Potassium 3.4 MMOL/L (3.5-5.1)
[2021-03-24] MEDS ORDERED: LEVOTHYROXINE 50 MCG TABLET PO SCH (06:30)
[2021-03-24] MEDS ORDERED: CALCIUM (CARBONATE)/VITAMIN D 600 MG-400 UNIT TABLET PO SCH (08:00)
[2021-03-24] MEDS: ALVIMOPAN 12 MG CAPSULE PO SCH (08:44)
[2021-03-24] MEDS ORDERED: MULTIVITAMIN (CENTRUM) TABLET PO SCH (09:00)
[2021-03-24] MEDS ORDERED: CETIRIZINE 10 MG TABLET PO SCH (09:00)
[2021-03-24] MEDS ORDERED: VITAMIN E 400 UNIT CAPSULE PO SCH (09:00)
[2021-03-24] MEDS ORDERED: PANTOPRAZOLE 40 MG TABLET PO SCH (09:00)
[2021-03-24] MEDS ORDERED: METOPROLOL SUCCINATE XL 25 MG TABLET PO SCH (09:00)
[2021-03-24] MEDS ORDERED: ENOXAPARIN 40 MG/0.4 ML SYRINGE SUBCUT SCH (09:00)
[2021-03-24 12:02] LABS: Hematocrit 26.5 VOL% (35.7-47.0); Hemoglobin 8.2 GM/DL (12.0-16.0)
[2021-03-24 15:46] VITALS: BP 175/74
== END 2021-03-24 16:57 | disposition home or self-care (01) | DRG 331 ==
LOC: N.OR 05:57 → N.SDSINP 05:59 → N.OR 06:05 → N.SDSINP 06:06 → N.3E 11:35
PROVIDERS: ADMIT Surgery; ATTEND Surgery